=== PATIENT | female | born 1965 | race Caucasian/White ===

== ENCOUNTER 2020-07-09 10:34 | Emergency (ER) | payer OTHER ==
[~2020-07-09] VITALS: Ht 152.4 cm; Wt 65.0 kg
[2020-07-09] MEDS ORDERED: KETOROLAC 30MG/ML VIAL IV ONE (11:30)
[2020-07-09 11:57] LABS: BASOPHILS % 0.3 % (0.0-2.0); EOSINOPHILS % 1.5 % (0.0-5.0); HEMOGLOBIN. 14.4 g/dL (12.0-16.0); LYMPHOCYTES % 26.3 % (20.0-50.0); MEAN CORPUSCULAR HEMOGLOBIN 31.2 pg (28.0-32.0); MEAN CORPUSCULAR VOLUME 91.4 fL (81.0-99.0); MEAN PLATELET VOLUME 11.6 fl (7.4-10.4); MONOCYTES % 6.6 % (2.0-8.0); NEUTROPHILS % 65.3 % (40.0-76.0); PLATELET 189 x1000/uL (130-400); RED CELL DISTRIBUTION WIDTH 12.9 % (11.6-14.6)
[2020-07-09 12:03] LABS: CHLORIDE 107 mEq/L (98-107)
[2020-07-09 12:07] LABS: PROTHROMBIN TIME 10.2 sec (9.6-11.0)
[2020-07-09] MEDS ORDERED: PROPOFOL 200MG/20ML VIAL IV ONE (12:30)
[2020-07-09] MEDS ORDERED: KETAMINE HCL 50 MG/ML 10ML IV ONE (12:30)
[2020-07-09] MEDS ORDERED: ONDANSETRON HCL 4MG/2ML INJ IV ONE (12:30)
[2020-07-09 14:05] LABS: CLARITY URINE CLEAR (CLEAR); COLOR URINE YELLOW (YELLOW); KETONES URINE NEGATIVE (NEGATIVE); LEUKOCYTE ESTERASE URINE NEGATIVE (NEGATIVE); NITRITE URINE NEGATIVE (NEGATIVE); OCCULT BLOOD URINE NEGATIVE (NEGATIVE); PH URINE 7.5 (4.5-8.0); PROTEIN URINE NEGATIVE (NEGATIVE); SPECIFIC GRAVITY URINE 1.008 (1.005-1.030); UROBILINOGEN URINE 0.2 E.U./dL (0.2-1.0)
[2020-07-09 15:48] VITALS: BP 136/69
== END 2020-07-09 15:58 | disposition home or self-care (01) ==
LOC: ER 10:48
DX: S82.61XA Displaced fracture of lateral malleolus of right fibula, initial encounter for closed fracture (principal); S82.391A Other fracture of lower end of right tibia, initial encounter for closed fracture; Z88.5 Allergy status to narcotic agent; Z88.6 Allergy status to analgesic agent; W01.0XXA Fall on same level from slipping, tripping and stumbling without subsequent striking against object, initial encounter; Y93.89 Activity, other specified; Y92.018 Other place in single-family (private) house as the place of occurrence of the external cause
CPT/HCPCS: 27818; 36415; 73590; 73600; 80053; 81003; 85025; 85610; 93005; 96374; 96375; 99152; 99285; J1885; J2405; J2704; J3490; Z7610